=== PATIENT | male | born 1990 | race Hispanic/Latino ===

== ENCOUNTER 2021-08-11 20:43 | Emergency (ER) | payer SELFPAY ==
--- NOTE | ~2021-08-11 | XR_ITS ---
EXAMINATION: XR chest 2V DATE: 08/11/2021 21:14 INDICATION: Chest pain after eating TECHNIQUE: PA and lateral views of the chest were obtained. COMPARISON: None FINDINGS: The lungs are clear with no focal airspace opacities, pulmonary edema, pleural effusion or pneumothor ax. The cardiomediastinal silhouette is normal. Visualized bones and soft tissues are unremarkable. IMPRESSION: 1. Normal chest radiograph. Reviewed, dictated and finalized at location [facility] IMPRESSION: 1. Normal chest radiograph.
[2021-08-11 20:47] VITALS: BP 136/92; PULSE 88; RESP 16; TEMP 36.4; O2SAT 98
--- NOTE | 2021-08-11 20:47 | ECG_ITS ---
Measurements Intervals [place] Rate: 83 P: 52 IN: 128 QRS: -1 QRSD: 96 T: 42 QT: 338 QTc: 397 Interpretive Statements SINUS RHYTHM NORMAL ECG Electronically Signed On 08-12-2021 5:40:22 [employer]ACHINE ADJUSTER by Carlos Rainey D.O.
--- NOTE | 2021-08-11 21:10 | PC.NURSE ---
Pt to XRAY at this time.
[2021-08-11 21:22] LABS: Basophils Absolute Auto 0.1 K/mm3 (0.0-0.1); Basophils Percent Auto 0.6 % (0.2-1.2); Eosinophils Absolute Auto 0.1 K/mm3 (0-0.3); Eosinophils Percent Auto 1.7 % (0-4.4); Hematocrit 44.8 % (42.0-52.0); Hemoglobin 15.5 g/dL (14.0-18.0); Immature Granulocyte Absolute 0.02 K/mm3 (0.00-0.031); Immature Granulocyte Percent A 0.2 % (0-0.5); Lymphocytes Absolute Auto 3.27 K/mm3 (0.9-3.2); Lymphocytes Percent Auto 39.6 % (18.3-44.2); Mean Corpuscular HGB Conc 34.6 g/dl (32-36); Mean Corpuscular Hemoglobin 30.1 pg (26-34); Mean Platelet Volume 9.8 fl (7.4-10.4); Monocytes Absolute Auto 0.7 K/mm3 (0.1-0.6); Monocytes Percent Auto 8.2 % (2.6-8.5); Neutrophils Absolute Auto 4.1 K/mm3 (1.3-6.7); Neutrophils Percent Auto 49.7 % (45.5-73.1); Platelet Count Result 228 k/mm3 (150-375); Red Blood Count 5.15 M/mm3 (4.6-6.20); Red Cell Distribution Width 12.4 % (11.5-14.5); White Blood Count 8.3 K/mm3 (4.5-10.0)
[2021-08-11 21:27] LABS: Alanine Aminotransferase 74 U/L (4-50); Albumin Level 4.5 g/dL (3.5-5.1); Alkaline Phosphatase 58 U/L (38-126); Anion Gap 9 mmol/L (8-16); Aspartate Amino Transferase 40 U/L (17-59); Bilirubin,Total 0.4 mg/dL (0.2-1.3); Blood Urea Nitrogen 17 mg/dL (9-20); Calcium 9.1 mg/dL (8.4-10.2); Carbon Dioxide 22 mmol/L (22-30); Chloride 104 mmol/L (98-107); Estimated CRCL calculation 110 ml/min; Estimated Glomerular Filt Rate > 60; Glucose 121 mg/dL (65-110); Lipase 235 U/L (23-300); Potassium 3.7 mmol/L (3.4-5.0); Sodium 135 mmol/L (137-145)
[2021-08-11 21:39] LABS: Troponin I < 0.012 ng/mL (0.000-0.034)
[2021-08-11 22:44] VITALS: BP 141/94; PULSE 78; RESP 16; O2SAT 98
--- NOTE | 2021-08-11 22:45 | ED.CHESTPAIN ---
HPI - Chest Pain General Chief Complaint: Chest Pain Stated Complaint: CP after eating Time Seen by Provider: 08/11/21 22:44 Source: patient Mode of arrival: ambulatory Limitations: no limitations History of Present Illness HPI narrative: Patient is a 33-year-old male complaining of chest pain, substernal, burning, was 7 out of 10, and now resolved, radiated to his left arm started tonight after eating. Patient states that it started off as abdominal pain, had diarrhea and pain resolved. Patient currently denies any chest pain, shortness of breath, abdominal pain, nausea, vomiting, fever, chills or diaphoresis. Related Data Allergies Allergy/AdvReac Type Severity Reaction Status Date / Time No Known Allergies Allergy Verified 08/11/21 22:49 Review of Systems Review of Systems: All systems reviewed & are unremarkable except as noted in HPI and below Constitutional: Constitutional: Denies body ache(s), Denies chills, Denies excessive sweating, Denies fatigue, Denies fever(s), Denies headache(s), Denies lethargy, Denies malaise, Denies weakness and Denies weight loss Eyes: Eyes: Denies blurry vision, Denies change in vision and Denies loss of vision ENT: Denies dizziness, Denies ear discharge, Denies headache(s), Denies lip swelling, Denies epistaxis, Denies nasal congestion, Denies neck pain, Denies throat swelling and Denies tongue swelling Cardiovascular: Cardiovascular: Denies diaphoresis, Denies rapid heart rate, Denies edema, Denies irregular heart rhythm, Denies lightheadedness, Denies palpitations, Denies dyspnea and Denies dyspnea on exertion Respiratory: Respiratory: Denies chest congestion, Denies cough, Denies hemoptysis, Denies dyspnea and Denies dyspnea on exertion Gastrointestinal: Gastrointestinal: Denies melena, Denies hematochezia, Denies nausea, Denies vomiting and Denies hematemesis Musculoskeletal: Musculoskeletal: Denies abnormal gait, Denies deformity, Denies joint swelling, Denies limited range of motion, Denies neck pain and Denies numbness Neurologic: Denies Abnormal speech present, Denies abnormal gait, Denies confusion, Denies dizziness, Denies headache(s), Denies focal weakness, Denies loss of vision, Denies numbness, Denies Other visual disturbances, Denies Sensory deficit (Neuro) and Denies weakness Psychiatric: Psychiatric: Denies confusion, Denies depression, Denies auditory hallucinations, Denies homicidal ideation and Denies suicidal ideation Endocrine: Endocrine: Denies cold intolerance, Denies excessive sweating, Denies fatigue, Denies heat intolerance and Denies palpitations Hematologic/Lymphatic: Hematologic/Lymphatic: Denies easy bleeding and Denies easy bruising Allergic/Immunologic: Allergic/Immunologic: Denies lip swelling, Denies throat swelling and Denies tongue swelling PMFSH Comments Past medical history: None Family history: Negative for coronary artery disease or ME Social history: Non-smoker no EtOH or drug use Course Vital Signs Vital signs: Vital Signs Temperature 36.4 C L 08/11/21 20:47 Pulse Rate 88 08/11/21 20:47 Respiratory Rate 16 08/11/21 20:47 Blood Pressure 136/92 H 08/11/21 20:47 Pulse Oximetry 98 08/11/21 20:47 Temperature 36.4 C L 08/11/21 20:47 Pulse Rate 70 08/11/21 23:24 Respiratory Rate 18 08/11/21 23:24 Blood Pressure 138/84 08/11/21 23:24 Pulse Oximetry 96 08/11/21 23:24 MDM - Chest Pain MDM Narrative Medical decision making narrative: Heart score: 0, very low probability for any major acute coronary event, will discharge home. Differential Diagnosis Differential diagnosis: Likely pneumothorax, stable angina, atypical chest pain, costochondritis and other (Acute gastritis) Lab Data Attestation: I reviewed the patient's lab results. Result diagrams: 08/11/21 21:09 08/11/21 21:09 Labs: Lab Results 08/11/21 08/11/21 08/11/21 Range/Units 21:09 21:09 22:49 WBC 8.3 (4.5-10.0) K/mm3
[2021-08-11 23:03] LABS: Prothrombin Time 12.6 Seconds (11.1-14.7)
[2021-08-11 23:04] LABS: Partial Thromboplastin Time 30.5 SECONDS (22.3-36.8)
[2021-08-11 23:24] VITALS: BP 138/84; PULSE 70; RESP 18; O2SAT 96
[2021-08-12 00:33] LABS: Troponin I < 0.012 ng/mL (0.000-0.034)
[2021-08-12 01:27] VITALS: BP 122/83; PULSE 70; RESP 17; O2SAT 99
== END 2021-08-12 01:28 | disposition home or self-care (01) ==
PROVIDERS: Emergency Medicine; Emergency Provider Emergency Medicine
DX: R07.89 Other chest pain (principal)
CPT/HCPCS: 36415; 71046; 80053; 83690; 84484; 85025; 85610; 85730; 93005; 99284